=== PATIENT | female | born 1990 | race Caucasian/White ===

== ENCOUNTER → 2023-04-11 | Outpatient (CLI) | payer OTHER ==
[2023-04-13 16:09] LABS: HPV 16 Negative (Negative); HPV 18 Negative (Negative); HPV OTHER HR TYPES Positive (Negative)
== END | disposition home or self-care (01) ==
LOC: LAB 11:17 → LAB SHORT 11:17
PROVIDERS: Obstetrics & Gynecology
DX: Z01.419 Encounter for gynecological examination (general) (routine) without abnormal findings (principal)
CPT/HCPCS: 87624; G0145

== ENCOUNTER → 2023-05-08 | Outpatient (CLI) | payer OTHER ==
[2023-05-08 15:18] LABS: BASOPHILS ABSOLUTE AUTO 0.05 K/mm3 (0.00-0.23); BASOPHILS PERCENT AUTO 1 % (0-2); EOSINOPHILS ABSOLUTE AUTO 0.04 K/mm3 (0.00-0.68); EOSINOPHILS PERCENT AUTO 1 % (0-6); Hematocrit 46.3 % (33.0-51.0); Hemoglobin 15.8 g/dL (11.5-16.0); IMMATURE GRAN ABSOLUTE AUTO 0.02 K/mm3 (0.00-0.10); IMMATURE GRAN PERCENT AUTO 0 % (0-1); LYMPHOCYTES PERCENT AUTO 23 % (21-46); MONOCYTES ABSOLUTE AUTO 0.64 K/mm3 (0.16-1.47); MONOCYTES PERCENT AUTO 8 % (4-13); Mean Corpuscular HGB 31.8 pg (26.0-34.0); Mean Corpuscular HGB Conc 34.1 g/dL (31.5-36.5); Mean Corpuscular Volume 93 fL (80-100); Mean Platelet Volume 9.9 fL (9.1-12.4); NEUTROPHILS ABSOLUTE AUTO 5.78 K/mm3 (1.96-9.15); NEUTROPHILS PERCENT AUTO 68 % (41-73); Platelet Count 234 K/mm3 (150-400); RDW Coefficient Variation 12.8 % (11.7-14.2); RDW Standard Deviation 43.8 fL (35.1-46.3); Red Blood Cell Count 4.97 M/mm3 (3.80-5.20); White Blood Cell Count 8.53 K/mm3 (4.00-11.30)
[2023-05-08 15:30] LABS: Albumin, Blood 4.1 g/dL (3.4-5.0); Albumin/Globulin Ratio 1.1 (0.8-1.8); Bilirubin, Total 0.7 mg/dL (0.1-1.0); Calcium, Blood 10.3 mg/dL (8.5-10.1); Creatinine, Blood 0.78 mg/dL (0.40-1.00); Globulin, Blood 3.8 g/dL (2.2-4.0); Potassium, Blood 3.5 mmol/L (3.5-5.5); Total Protein, Blood 7.9 g/dL (6.4-8.2)
== END | disposition home or self-care (01) ==
LOC: LAB SHORT 15:14 → LAB 15:14
PROVIDERS: Chiropractor
DX: N39.0 Urinary tract infection, site not specified (principal); E86.0 Dehydration; R10.13 Epigastric pain
CPT/HCPCS: 80053; 83690; 85025; 87077; 87086; 87186

== ENCOUNTER → 2023-05-29 | Outpatient (CLI) | payer OTHER ==
[~2023-05-29] MED LIST: DICY20 PO; METO10 PO; ONDA4ODT MM; PROM12.5S PR
== END | disposition home or self-care (01) ==
LOC: LAB SHORT 11:07 → PLD 11:07
DX: R87.612 Low grade squamous intraepithelial lesion on cytologic smear of cervix (LGSIL) (principal)
CPT/HCPCS: 88305; 88342

== ENCOUNTER 2023-05-31 08:31 | Emergency (ER) | payer OTHER ==
[~2023-05-31] VITALS: Ht 162.6 cm; Wt 81.7 kg
[2023-05-31 09:31] LABS: BASOPHILS ABSOLUTE AUTO 0.05 K/mm3 (0.00-0.23); BASOPHILS PERCENT AUTO 1 % (0-2); EOSINOPHILS ABSOLUTE AUTO 0.03 K/mm3 (0.00-0.68); EOSINOPHILS PERCENT AUTO 0 % (0-6); Hematocrit 43.4 % (33.0-51.0); IMMATURE GRAN ABSOLUTE AUTO 0.01 K/mm3 (0.00-0.10); IMMATURE GRAN PERCENT AUTO 0 % (0-1); LYMPHOCYTES ABSOLUTE AUTO 1.53 K/mm3 (0.84-5.20); LYMPHOCYTES PERCENT AUTO 23 % (21-46); MONOCYTES ABSOLUTE AUTO 0.45 K/mm3 (0.16-1.47); MONOCYTES PERCENT AUTO 7 % (4-13); Mean Corpuscular HGB 31.7 pg (26.0-34.0); Mean Corpuscular HGB Conc 34.6 g/dL (31.5-36.5); Mean Corpuscular Volume 92 fL (80-100); Mean Platelet Volume 9.7 fL (9.1-12.4); NEUTROPHILS ABSOLUTE AUTO 4.61 K/mm3 (1.96-9.15); NEUTROPHILS PERCENT AUTO 69 % (41-73); Platelet Count 267 K/mm3 (150-400); RDW Coefficient Variation 12.8 % (11.7-14.2); RDW Standard Deviation 43.4 fL (35.1-46.3); Red Blood Cell Count 4.73 M/mm3 (3.80-5.20); White Blood Cell Count 6.68 K/mm3 (4.00-11.30)
[2023-05-31 09:44] LABS: Albumin, Blood 3.7 g/dL (3.4-5.0); Albumin/Globulin Ratio 1.1 (0.8-1.8); Bilirubin, Direct 0.1 mg/dL (0.0-0.3); Bilirubin, Indirect 0.1 mg/dL (0.1-0.7); Bilirubin, Total 0.2 mg/dL (0.1-1.0); Bun/Creatinine Ratio 20.4 (12.0-20.0); Calcium, Blood 9.6 mg/dL (8.5-10.1); Creatinine, Blood 0.59 mg/dL (0.40-1.00); Globulin, Blood 3.5 g/dL (2.2-4.0); Potassium, Blood 4.1 mmol/L (3.5-5.5); Total Protein, Blood 7.2 g/dL (6.4-8.2)
[2023-05-31 10:29] LABS: Source, Urine Clean Catch
[2023-05-31 11:01] LABS: Appearance, Urine Clear (Clear); Bilirubin, Urine Neg (Neg); Blood, Urine Neg (Neg); Glucose Qualitative, Urine Neg (Neg); Ketones, Urine Neg (Neg); Leukocyte Esterase, Urine Neg (Neg); Nitrite, Urine Neg (Neg); Protein, Urine Neg (Neg); Specific Gravity, Urine 1.005 (1.003-1.022); Urobilinogen, Urine NORM (Normal)
[2023-05-31 11:20] LABS: Color, Urine Pale Yellow (P-Yellow)
[2023-05-31] MEDS ORDERED: ONDA4ODT MM (12:59)
[2023-05-31] MEDS ORDERED: DICY20 PO (12:59)
[2023-05-31] MEDS ORDERED: METO10 PO (12:59)
[2023-05-31] MEDS ORDERED: PROM12.5S PR (12:59)
[2023-05-31 13:05] VITALS: BP 135/60
== END 2023-05-31 13:05 | disposition home or self-care (01) ==
LOC: ER 08:31
PROVIDERS: Student in an Organized Health Care Education/Training Program
DX: R10.13 Epigastric pain (principal); R10.10 Upper abdominal pain, unspecified; R11.2 Nausea with vomiting, unspecified; Z88.8 Allergy status to other drugs, medicaments and biological substances; Z88.5 Allergy status to narcotic agent
CPT/HCPCS: 80048; 80076; 81003; 83690; 85025; 96361; 96374; 96375; 99283-25; A9270; J1200; J1790; J1885; J2405; J7030

== ENCOUNTER → 2023-08-02 | Outpatient (CLI) | payer OTHER | LOC: LAB SHORT 10:55 → PLD 10:55 | DX: N72 Inflammatory disease of cervix uteri (principal); N87.9 Dysplasia of cervix uteri, unspecified | CPT/HCPCS: 88305 ==

== ENCOUNTER 2023-08-15 19:14 | Emergency (ER) | payer OTHER ==
[~2023-08-15] VITALS: Ht 162.6 cm; Wt 76.7 kg
[2023-08-15] MEDS ORDERED: BUPR150ER PO (19:37)
[2023-08-15 19:51] LABS: BASOPHILS ABSOLUTE AUTO 0.06 K/mm3 (0.00-0.23); BASOPHILS PERCENT AUTO 1 % (0-2); EOSINOPHILS ABSOLUTE AUTO 0.09 K/mm3 (0.00-0.68); EOSINOPHILS PERCENT AUTO 1 % (0-6); Hematocrit 40.5 % (33.0-51.0); Hemoglobin 14.1 g/dL (11.5-16.0); IMMATURE GRAN ABSOLUTE AUTO 0.02 K/mm3 (0.00-0.10); IMMATURE GRAN PERCENT AUTO 0 % (0-1); LYMPHOCYTES ABSOLUTE AUTO 3.55 K/mm3 (0.84-5.20); LYMPHOCYTES PERCENT AUTO 34 % (21-46); MONOCYTES ABSOLUTE AUTO 0.79 K/mm3 (0.16-1.47); MONOCYTES PERCENT AUTO 8 % (4-13); Mean Corpuscular HGB 32.3 pg (26.0-34.0); Mean Corpuscular HGB Conc 34.8 g/dL (31.5-36.5); Mean Corpuscular Volume 93 fL (80-100); Mean Platelet Volume 9.5 fL (9.1-12.4); NEUTROPHILS ABSOLUTE AUTO 6.08 K/mm3 (1.96-9.15); NEUTROPHILS PERCENT AUTO 57 % (41-73); Platelet Count 297 K/mm3 (150-400); RDW Coefficient Variation 12.4 % (11.7-14.2); RDW Standard Deviation 42.4 fL (35.1-46.3); Red Blood Cell Count 4.37 M/mm3 (3.80-5.20); White Blood Cell Count 10.59 K/mm3 (4.00-11.30)
[2023-08-15 20:17] LABS: Albumin, Blood 3.7 g/dL (3.4-5.0); Bilirubin, Total 0.3 mg/dL (0.1-1.0); Bun/Creatinine Ratio 18.9 (12.0-20.0); Calcium, Blood 9.8 mg/dL (8.5-10.1); Creatinine, Blood 0.8 mg/dL (0.40-1.00); Globulin, Blood 3.7 g/dL (2.2-4.0); Potassium, Blood 3.5 mmol/L (3.5-5.5); Total Protein, Blood 7.4 g/dL (6.4-8.2)
[2023-08-15 22:05] VITALS: BP 106/85
== END 2023-08-15 22:10 | disposition home or self-care (01) ==
LOC: ER 19:14
PROVIDERS: Student in an Organized Health Care Education/Training Program
DX: N93.9 Abnormal uterine and vaginal bleeding, unspecified (principal); Z98.890 Other specified postprocedural states; Z88.5 Allergy status to narcotic agent; Z88.6 Allergy status to analgesic agent; Z79.899 Other long term (current) drug therapy
CPT/HCPCS: 80053; 85025; 86850; 86900; 86901; 96374; 99283-25; A9270; J3010

== ENCOUNTER 2024-01-17 09:04 | Day surgery (SDC) | payer OTHER ==
[~2024-01-17] VITALS: Ht 162.6 cm; Wt 76.0 kg
[2024-01-17] VITALS (14 sets, daily range): BP systolic 107–117; BP diastolic 44–79
[~2024-01-17 09:04] MED LIST changes: +BENADRYL25 MG PO; +BUPR150ER PO; +IBUP800 PO
[2024-01-17] MEDS ORDERED: Lactated Ringer's 1,000 ML IV SCH ×2 (09:15→11:40)
[2024-01-17] MEDS ORDERED: CeFAZolin Sodium 2,000 MG in NS 100 ML IV SCH (09:15)
--- NOTE | 2024-01-17 09:41 | NUR ---
Ambulatory in Day Surgery History, Chart, Medications and Allergies reviewed before start of procedure. Pre-Op teaching done. Pt verbalizes understanding.
[2024-01-17] MEDS ORDERED: propofoL 20 ML IV ONE (09:59)
[2024-01-17] MEDS ORDERED: FentaNYL Citrate 50 MCG/ML 5 ML Injection ONE (09:59)
[2024-01-17] MEDS ORDERED: Rocuronium Bromide 10 MG/ML 5ML Injection IV ONE (09:59)
[2024-01-17] MEDS ORDERED: Bupivacaine 0.5% HCl 5 MG/ML 30MLVIAL ONE (10:03)
[2024-01-17] MEDS ORDERED: Dexamethasone Sod Phos 10 MG/ML 1ML VIAL ONE (10:22)
[2024-01-17] MEDS ORDERED: Sugammadex Sodium 200 MG/2ML SDV (100 MG/ML) ONE (11:06)
[2024-01-17] MEDS ORDERED: Ondansetron HCl 2 MG / ML 2ML Vial ONE (11:06)
[2024-01-17] MEDS ORDERED: Metoclopramide HCl 5MG / ML 2ML Vial IV PRN (11:35)
[2024-01-17] MEDS ORDERED: Acetaminophen 500 MG Tab PO PRN (11:40)
[2024-01-17] MEDS ORDERED: DiphenhydrAMINE HCL 25 MG Cap PO PRN (11:40)
[2024-01-17] MEDS ORDERED: OxyCODONE HCL 5 MG TAB PO PRN (11:40)
[2024-01-17] MEDS ORDERED: Simethicone 80 MG Chew PO PRN (11:40)
[2024-01-17] MEDS ORDERED: HYDROmorphone HCl/Pf 1MG SYR IV PRN (11:40)
[2024-01-17] MEDS ORDERED: Ondansetron 4 MG TAB PO PRN (11:40)
[2024-01-17] MEDS ORDERED: Ketorolac Tromethamine 30mg Vial ONE (11:43)
[2024-01-17] MEDS ORDERED: Naloxone HCl 0.4MG / ML 1ML Vial IV PRN (11:45)
[2024-01-17] MEDS ORDERED: Metoclopramide HCl 10 MG Tab PO PRN (11:45)
[2024-01-17] MEDS ORDERED: Ondansetron HCl 2 MG / ML 2ML Vial IV PRN (11:45)
[2024-01-17] MEDS ORDERED: Ketorolac Tromethamine 30mg Vial IV PRN (11:50)
[2024-01-17] MEDS ORDERED: HYDROmorphone HCl/Pf 1MG SYR ONE (12:01)
--- NOTE | 2024-01-17 12:54 | NUR ---
PT ARRIVED TO UNIT FROM PACU AT 1225. TRANSFERRED PT TO BED FROM [facility]. ORIENTED TO USE OF CALL LIGHT. VSS. LAP INCISIONS TO ABD X4 CDI W/TISSUE ADHESIVE. NADINE PAD CDI. PT REPORTED PAIN TO ABD 7/10. APPLIED KPAD FOR COMFORT. CALL LIGHT IN REACH. FAMILY BEDSIDE.
[2024-01-17] MEDS ORDERED: ACET500 PO (14:40)
[2024-01-17] MEDS ORDERED: OXAYDO5 M1 PO (14:41)
[2024-01-17] MEDS ORDERED: IBUP400 PO (14:42)
--- NOTE | 2024-01-17 16:17 | NUR ---
DISCHARGED AT 1600 PT PAIN CONTROLLED BY PO PAIN MEDS ADEQUATELY, PT TOLERATING PO INTAKE, VOIDED AND BS SHOWED ONLY 8 ML RETAINED URINE AFTER SECOND VOID. AMBULATED WITHOUT DIFFICULTY. VSS. PT DESIRED TO BE DC'D HOME. DC'D IV, CATHETER INTACT. REVIEWED DC INSTRUCTIONS W/PT; VERBLALIZED UNDERSTANDING. PT SIGNED DC PAPERWORK. LEFT UNIT IN WC, W/DC INSTRUCTIONS AND PERSONAL POSSESSIONS IN HAND, ACCOMPANIED BY FAMILY.
== END 2024-01-17 16:01 | disposition home or self-care (01) ==
LOC: ORSCMMR 09:04 → ORD 10:30 → SURS 12:19 → ORSCMMR 16:01
PROVIDERS: Obstetrics & Gynecology
PROC: 0UT7FZZ Resection of Bilateral Fallopian Tubes, Via Natural or Artificial Opening With Percutaneous Endoscopic Assistance (ICD-10-PCS; principal; 2024-01-17 10:30)
PROC: 0UT9FZZ Resection of Uterus, Via Natural or Artificial Opening With Percutaneous Endoscopic Assistance (ICD-10-PCS; principal; 2024-01-17 10:30)
DX: N80.9 Endometriosis, unspecified (principal); N94.6 Dysmenorrhea, unspecified; R87.810 Cervical high risk human papillomavirus (HPV) DNA test positive; N88.8 Other specified noninflammatory disorders of cervix uteri; F41.9 Anxiety disorder, unspecified; F32.A Depression, unspecified; Z79.899 Other long term (current) drug therapy
CPT/HCPCS: 86850; 86900; 86901; 88307; A9270; J0690; J1100; J1170; J1885; J2405; J2704; J3010; J7120

== ENCOUNTER → 2024-06-23 | Outpatient (CLI) | payer OTHER ==
[~2024-06-23] MED LIST changes: +ACET500 PO; +IBUP400 PO; +OXAYDO5 M1 PO
[2024-06-23 10:27] LABS: Source, Urine Clean Catch
[2024-06-23 13:27] LABS: Appearance, Urine Turbid (Clear); Bilirubin, Urine Neg (Neg); Blood, Urine 1+ (Neg); Color, Urine Yellow (P-Yellow); Glucose Qualitative, Urine Neg (Neg); Ketones, Urine 2+ (Neg); Leukocyte Esterase, Urine Neg (Neg); Nitrite, Urine Neg (Neg); Protein, Urine 1+ (Neg); Urobilinogen, Urine 1+ (Normal)
[2024-06-23 13:48] LABS: Amorphous Heavy (0-Heavy); Red Blood Cells, Urine 0-2 /hpf (0-2); White Blood Cells, Urine 0-2 /hpf (0-5)
[2024-06-23 13:49] LABS: Bacteria Few /hpf; Squamous Epithelial Cells Few /hpf (Few)
[2024-06-23 14:31] LABS: Candida glabrata-krusei, PCR NOT DETECTED (NOT DETECT)
[2024-06-23 14:40] LABS: Bacterial Vaginosis PCR Positive (NEGATIVE); Candida Group, PCR DETECTED (NOT DETECT)
== END ==
LOC: LAB 10:23 → LAB SHORT 10:23
PROVIDERS: Obstetrics & Gynecology
DX: R39.15 Urgency of urination (principal); N76.0 Acute vaginitis
CPT/HCPCS: 81001; 87481; 87661; 87801